=== PATIENT | female | born 1990 | race Caucasian/White ===

== ENCOUNTER → 2016-10-07 | Outpatient (CLI) | payer MEDICAID ==
[~2016-10-07] MED LIST: IBUPROFEN800 MG PO; KEFLEX 500MG.500 MG PO; NORCO 325 MG-51 TAB PO
[2016-10-07 09:11] LABS: LYMPH # 2.8 K/mm3 (0.7-4.5); LYMPH % 56.5 % (10-50.0)
[2016-10-07 10:07] LABS: NEUTROPHILS 28 % (42-76)
[2016-10-07 10:08] LABS: BUN 17 mg/dL (7-18); STOMATOCYTE 2+
[2016-10-07 10:10] LABS: GFR (ESTIMATED) 103 ML/MIN (59-)
[2016-10-08 07:40] LABS: HBsAg Screen Negative (Negative); Hep A Ab, IgM Negative (Negative); Hep B Core Ab, IgM Negative (Negative)
== END ==
LOC: LAB 08:51
PROVIDERS: Emergency Medicine
DX: Z00.00 Encounter for general adult medical examination without abnormal findings (principal)